=== PATIENT | female | born 2000 | race African-American/Black ===

== ENCOUNTER 2020-12-07 05:10 | Inpatient (IN) | payer OTHER, SELFPAY ==
[2020-12-07] VITALS (88 sets, daily range): BP systolic 86–157; BP diastolic 53–105; PULSE 78–169; RESP 18; TEMP 36.5–37.5; O2SAT 84–100; BMI 32.9
[2020-12-07] MEDS: fentaNYL CITRATE INJ (*CRX) 100 MCG/2 ML VIAL 50 MCG IV PUSH (08:00)
[2020-12-07 08:09] LABS: Basophils Percent Auto 0.1 % (0.2-1.2); Eosinophils Absolute Auto 0.1 K/mm3 (0-0.3); Eosinophils Percent Auto 0.8 % (0-4.4); Hematocrit 38.9 % (37.0-47.0); Immature Granulocyte Absolute 0.07 K/mm3 (0.00-0.031); Immature Granulocyte Percent A 0.7 % (0-0.5); Lymphocytes Absolute Auto 1.48 K/mm3 (0.9-3.2); Lymphocytes Percent Auto 14.3 % (18.3-44.2); Mean Corpuscular HGB Conc 33.4 g/dl (32-36); Mean Corpuscular Hemoglobin 27.4 pg (26-34); Mean Corpuscular Volume 81.9 fl (80-100); Mean Platelet Volume 10.3 fl (7.4-10.4); Monocytes Absolute Auto 0.8 K/mm3 (0.1-0.6); Monocytes Percent Auto 7.2 % (2.6-8.5); Neutrophils Percent Auto 76.9 % (45.5-73.1); Platelet Count Result 342 k/mm3 (150-375); Red Blood Count 4.75 M/mm3 (4.2-5.4); Red Cell Distribution Width 12.7 % (11.5-14.5); White Blood Count 10.4 K/mm3 (4.5-10.0)
--- NOTE | 2020-12-07 10:11 | WPDANESEPPF ---
Anes - Initial Pre Proc Eval Procedure: labor epidural Date/Time: 12/07/20 10:11 Surgeon: Jared Ramos MD Pre Op Diagnosis: labor pain Pre Op Diagnosis: Contractions Patient Data Age: 20 Gender: F Height: Weight: Last Vital Signs Pulse 112 H 12/07/20 10:10 BP 127/59 L 12/07/20 10:10 Pulse Ox 100 12/07/20 10:07 Allergies Allergy/AdvReac Type Severity Reaction Status Date / Time ibuprofen [From Motrin] Allergy Hives Verified 12/06/20 14:07 Home Medications Medication Instructions Recorded Confirmed Type ergocalciferol (vitamin D2) 1,250 mcg PO WEEKLY 12/06/20 12/06/20 History [Vitamin D2] prenat.vits,rory,[id number] 1 tablet PO DAILY 12/06/20 12/06/20 History [ #2] Laboratory Tests 12/07/20 12/07/20 08:03 08:03 WBC 10.4 K/mm3 H K/mm3 (4.5-10.0) RBC 4.75 M/mm3 M/mm3 (4.2-5.4) Hgb 13.0 g/dL g/dL (12.0-15.0) Hct 38.9 % % (37.0-47.0) MCV 81.9 fl fl (80-100) MCH 27.4 pg pg (26-34) MCHC 33.4 g/dl g/dl (32-36) RDW 12.7 % % (11.5-14.5) Plt Count 342 k/mm3 k/mm3 (150-375) MPV 10.3 fl fl (7.4-10.4) Immature Gran % (Auto) 0.7 % H % (0-0.5) Neut % (Auto) 76.9 % H % (45.5-73.1) Lymph % (Auto) 14.3 % L % (18.3-44.2) Mcminn % (Auto) 7.2 % % (2.6-8.5) Eos % (Auto) 0.8 % % (0-4.4) Baso % (Auto) 0.1 % L % (0.2-1.2) Lymph # (Auto) 1.48 K/mm3 K/mm3 (0.9-3.2) Mcminn # (Auto) 0.8 K/mm3 H K/mm3 (0.1-0.6) Eos # (Auto) 0.1 K/mm3 K/mm3 (0-0.3) Baso # (Auto) 0.0 K/mm3 K/mm3 (0.0-0.1) Abs Immat Gran (auto) 0.07 K/mm3 H K/mm3 (0.00-0.031) Absolute Neuts (auto) 8.0 K/mm3 H K/mm3 (1.3-6.7) Absolute Nucleated RBC 0.0 K/mm3 K/mm3 (0.0-0.012) Nucleated RBC % 0.0 % % (0.0-0.2) RPR Pending Patient hx anesthesia problems: none Family hx anesthesia problems: none [facility] Family History Family History (Updated 12/06/20 @ 14:11 by Valdez Romo RN) Sibling Asthma Grandparent Hypertension Diabetes mellitus Uterine cancer Prostate carcinoma Colon cancer Social History Social History Substance use: never Spiritual care concerns: No Anes - Eval Final PreProcedure Day of Procedure 12/07/20 10:11 ASA classification: II Anesthesia type and monitoring: regional epidural Informed Consent: The patient's anesthetic plan and its attendant risks and benefits were discussed with the patient/family/POA. Questions were solicited and answers provided to the satisfaction of the patient/family/POA.
--- NOTE | 2020-12-07 10:28 | WPDOBADMIT ---
Obstetrics - Admit Note Admission Note: AROm clear fluid 5-6/100/-2 IUPC placedPrenatal record reviewed. No pertinent additions to the history and/or any subsequent changes in the physical findings that are not consistent with the expected course of the were found. Additions to the history and/or subsequent changes in the physical findings follow. None.
--- NOTE | 2020-12-07 10:35 | LDADM ---
This patient, Nadia Rosen, was admitted to Labor/Delivery/Recovery 108 on 12/07/20 at 05:10. Plans for labor, pain management and were discussed with patient. Patient/family oriented to hospital policies and general routines including ID bracelet, bed and alarms, visiting hours, pain management, procedures, bathroom and other care routines, personal items, smoking policy, room service/diet and guest tray routines, infant security routines, and visiting hours. Patient/Family are encouraged to report perceived risks to care and to ask questions if they do not understand what they are told or what they should do. See OBIX for further documentation.
[2020-12-07] MEDS: LACTATED RINGERS 1,000 ML 125 ML IV CONT (11:00)
[2020-12-07] MEDS: OXYTOCIN 30 UNITS/NS 500 ML 30 UNITS/500 ML BAG 6 UNITS IV CONT (13:20)
--- NOTE | 2020-12-07 13:31 | PM.OBPRVD ---
OB - Delivery Note Procedure Delivery date: 12/07/20 Procedure: Intrapartal events: None Induction method: none Delivery augmentation: rupture of membranes Delivery monitor: external FHT, external uterine and internal uterine Route of delivery: Laceration Description: None Quantitative Blood Loss (ml): 25 Anesthesia type: Epidural Disposition: floor [place] Baby Date of : 12/07/20 Time of : 13:15 Weeks of gestation at delivery: 38 Infant gender: Male Weight (pounds): 9 Weight (ounces): 9 presentation: vertex position: Left Occiput Anterior Placenta delivery description: Spontaneous cord vessel description: 3 Vessels and Clamped/Cut score one minute: 9 score five minutes: 9
--- NOTE | 2020-12-07 16:33 | PC.NURSE ---
Patient transferred to post room #279 per wheelchair. Support person present. Oriented to unit, room, information board, rooming in, admission packet and security measures. Patient verbalizes understanding.
[2020-12-07] MEDS: LANOLIN (LANSINOH) 7.5 GM CREAM 1 APPLIC TOPICAL (17:11)
[2020-12-07] MEDS: WITCH HAZEL 40 PADS 1 PAD TOPICAL (17:11)
[2020-12-07] MEDS: DOCUSATE SODIUM 100 MG CAPSULE PO (17:11)
[2020-12-07] MEDS: BENZOCAINE 20% AER SPR (*SP) 56 GM CAN 1 SPRAY TOPICAL (17:11)
[2020-12-07] MEDS: ACETAMINOPHEN 325 MG TABLET 650 MG PO (19:11)
[2020-12-08 04:05] VITALS: BP 107/46; PULSE 95; RESP 16; TEMP 36.4; O2SAT 99
[2020-12-08 04:38] LABS: Hematocrit 32.7 % (37.0-47.0)
[2020-12-08 08:00] VITALS: BP 102/61; PULSE 78; RESP 18; TEMP 36.9
[2020-12-08] MEDS: ACETAMINOPHEN 325 MG TABLET 650 MG PO (08:03)
[2020-12-08] MEDS: DOCUSATE SODIUM 100 MG CAPSULE PO (08:03)
--- NOTE | 2020-12-08 08:17 | WPDANLDPN2 ---
Anes-Prog Note L&D Date/Time: 12/08/20 08:17 Comfortable throughout: labor and delivery Neuraxial method: epidural Epidural/Spinal procedure site: clean & non-tender Neuro status: Neuro function grossly intact. Cardiovascular status: normal Respiratory status: normal Airway patency: baseline Mental status: baseline Post-Op hydration status: normal Vital Signs: Last Vital Signs Temp 36.4 C 12/08/20 04:05 Pulse 95 12/08/20 04:05 Resp 16 12/08/20 04:05 BP 107/46 L 12/08/20 04:05 Pulse Ox 99 12/08/20 04:05 Pain score (VAS): 3 Post-procedural complaints: none Patient feedback: Patient satisfied with anesthetic care.
[2020-12-08 12:51] VITALS: BP 100/60; PULSE 86; RESP 18; TEMP 36.7
[2020-12-08 18:47] VITALS: BP 120/70; PULSE 96; RESP 18; TEMP 37.1
--- NOTE | 2020-12-09 00:14 | PM.OBPNVD ---
OB - PN: Subj Subjective Date/time seen: 12/09/20 00:14 doing well no complaints OB - PN: Obj Data Labs CBC & Chem 7: 12/08/20 03:54 Labs: Laboratory Results - last 24 hr 12/08/20 03:54 Hgb 11.0 L Hct 32.7 L OB - PN A/P Assessment and Plan (1) (normal spontaneous vaginal delivery): Code(s): O80 - Encounter for full-term uncomplicated delivery Status: Acute Assessment and Plan: continue with pp care Time Spent With Patient Time: Total time spent is greater than 50% in coordination of care (as documented) at patient's floor/unit and/or counseling patient: Exam Narrative: ff below umbilicus
[2020-12-09] MEDS: BACLOFEN 5 MG TABLET PO (03:08)
[2020-12-09] MEDS: CYCLOBENZAPRINE HCL 5 MG TABLET PO (03:09)
[2020-12-09] MEDS: ACETAMINOPHEN 325 MG TABLET 650 MG PO (07:17)
[2020-12-09] MEDS: DOCUSATE SODIUM 100 MG CAPSULE PO (07:17)
[2020-12-09] MEDS: BENZOCAINE 20% AER SPR (*SP) 56 GM CAN 1 SPRAY TOPICAL (07:20)
[2020-12-09] MEDS: WITCH HAZEL 40 PADS 1 PAD TOPICAL (07:20)
[2020-12-09 07:26] VITALS: BP 114/68; PULSE 98; RESP 18; TEMP 36.2
[2020-12-09 08:04] LABS: Rapid Plasma Reagin Non-Reactive (NonReactive)
--- NOTE | 2020-12-09 08:39 | PC.NURSE ---
Patient viewed the discharge video Mother & Baby Care, The First Two Weeks . Patient was given the opportunity and encouraged to ask questions. Patient verbalized understanding of information shared and has been given the mother/baby guide for home reference.
--- NOTE | 2020-12-09 09:03 | PM.OBPNVD ---
OB - PN: Subj Subjective Date/time seen: 12/09/20 09:03 Patient comments: no complaints and pain well controlled baby status: doing well OB - PN: Obj Data Labs CBC & Chem 7: 12/08/20 03:54 Labs: Laboratory Results - last 24 hr 12/07/20 08:03 RPR Non-reactive OB - PN A/P Plan day: 2 Plan: routine care, discharge home, follow up 6 weeks and other (plans condoms) Time Spent With Patient Time: Total time spent is greater than 50% in coordination of care (as documented) at patient's floor/unit and/or counseling patient: Exam : Bimanual exam- vagina & uterus: other (Uterus firm, nt @U)
--- NOTE | 2020-12-09 11:05 | PC.NURSE ---
Self and care discharge instructions given including follow up visit date and time. Pt. verbalized understanding. No questions or concerns voiced. Very pleasant and cooperative. FOB at side.
[2020-12-11 10:47] VITALS: BP 119/66; PULSE 100; RESP 20; TEMP 37.4; O2SAT 100
--- NOTE | 2021-02-17 12:00 | PM.OBDSVD ---
DS: Admitting Diagnosis Discharge Date 12/09/20 Admitting Diagnosis Labor OB - DS: Summary OB Procedures : Ultrasound OB Procedures Intrapartum: Spontaneous Vag Delivery OB Procedures: : None Time Spent with Patient Time attestation: Total time spent providing and/or coordinating discharge services: Discharge Plan Discharge Attending physician on discharge: Jared Ramos Consulting providers: Mere Pinedo ; Jey Coronel Discharging Clinician: Jared Ramos Patient Disposition: Home, Self-Care Activity: may shower and pelvic rest Diet: regular Discharge Instructions: Education: Mom and Baby Guide Given to: Mother Follow-Up: Call your delivering provider's office for an appointment to be seen in: 4 Weeks Mom and baby should come to the [facility] for the follow-up appointment. Appointment Date/Time: Friday, December 11, 2020 at 10:00 am What to expect at your follow-up visit: Blood Pressure Check Physical Assessment Call [phone] if you are unable to keep your appointment time. BREAST CARE: * Wear a snug supportive bra. Bottle Feeding: * May apply ice packs* For sore nipples: * Identify correct latch-on * Apply warm moist washcloths before and after nursing * Air dry nipples after nursing * May apply Lansinoh cream to nipples EPISIOTOMY/PERINEAL CARE: * Until bleeding stops, use your shante bottle after urinating * Change your pad frequently throughout the day * You may take sitz baths several times a day (fill your bathtub with warm water and soak for 20 minutes.) Do NOT bathe in the water * No tub baths until seen by your physician - You may shower ACTIVITY: * Rest as much as possible. * Do not exercise or lift anything heavier than your baby (such as laundry or other children.) * Avoid stairs or driving as much as possible. * Do not put anything into the vagina. No douching, tampons, or sexual activity until seen by physician. NOTIFY PHYSICIAN IF YOU HAVE ANY QUESTIONS OR IF ANY OF THE FOLLOWING SYMPTOMS OCCUR: * If your episiotomy becomes red, swollen, or more painful than what you have experienced in the hospital. * If your vaginal bleeding becomes foul smelling. * If your vaginal bleeding becomes more heavy than a period or if your bleeding changes from pink to bright red. However, you may pass an occasional walnut-sized clot once or twice for the first week . * If you experience a sharp, shooting pain in you calves. * If you discover a hard, reddened area on your breast or if you experience flu-like symptoms. DIET: * Eat regular, well-balanced meals. * Drink plenty of fluids daily. If , drink to thirst. Patient Instructions: Antibiotic Form Stand Alone Forms: General Discharge Information Follow-up/Referrals: Jared Ramos MD [Physician] - 4 Weeks Discharge Medications: Continued ergocalciferol (vitamin D2) [Vitamin D2] 1,250 mcg (50,000 unit) Capsule 1,250 mcg PO WEEKLY RF: 0 prenat.vits,rory,[id number]-bilmp Tablet 1 tablet PO DAILY RF: 0 Date of admission: 12/07/20 05:10 Primary Care Provider: UNKNOWN,DOCTOR Admitting Provider: Jared Ramos Attending physician on admission: Jared Ramos Condition: Stable
== END 2020-12-09 13:23 | disposition home or self-care (01) | DRG 807 ==
LOC: ANHLDR 07:42 → ANHOB2 16:41
PROVIDERS: Admitting Provider Obstetrics & Gynecology; Visit Provider Obstetrics & Gynecology
DX: O76 Abnormality in fetal heart rate and rhythm complicating labor and delivery (principal); Z37.0 Single live birth; Z3A.38 38 weeks gestation of pregnancy
CPT/HCPCS: 36415; 85014; 85018; 85025; 86592; 86850; 86900; 86901; A9270; J2590; J2795; J3010; J7120